=== PATIENT | female | born 1965 | race Caucasian/White ===

== ENCOUNTER 2019-03-25 00:57 | Inpatient (IN) ==
[2019-03-25 01:50] LABS: INFLUENZA A NEGATIVE (NEGATIVE); INFLUENZA B NEGATIVE (NEGATIVE)
[2019-03-25] MEDS ORDERED: TYLENOL PO ONE (01:55)
[2019-03-25] MEDS ORDERED: NS 1,000 ML IV ONE ×2 (01:56→07:14)
[2019-03-25 02:06] LABS: BILIRUBIN URINE NEGATIVE (NEGATIVE); BLOOD URINE 1+ (NEGATIVE); CLARITY CLEAR (CLEAR); COLOR YELLOW; GLUCOSE URINE NEGATIVE (NEGATIVE); KETONE URINE 1+(Small) mg/dL (NEGATIVE); LEUKOCYTES URINE 1+ (NEGATIVE); NITRITE URINE NEGATIVE (NEGATIVE); PH URINE 6.5; PROTEIN URINE 1+(30 mg/dL) mg/dL (NEGATIVE); SP GRAVITY URINE 1.015; UROBILINOGEN URINE 4 mg/dL
[2019-03-25 02:07] LABS: URINE BACTERIA 4+ /HFP; URINE EPITHELIAL CELLS <10 /HPF (<10); URINE SOURCE CLEAN CATCH
[2019-03-25 02:31] LABS: INR 1.1; PROTIME 14.8 Seconds (11.0-16.0)
[2019-03-25 02:32] LABS: PTT 47.3 Seconds (22.3-41.8)
[2019-03-25 02:58] LABS: BASO% 0.3 % (0.0-0.8); EOS% 1.9 % (0.0-10.0); LYMPH# 3.09 X1000 (1.2-3.4); MCH 30.7 PG (27-31)
[2019-03-25 02:59] LABS: AGAP 13; ALBUMIN 4.1 g/dL (3.5-5.0); ALKALINE PHOSPHATASE 145 U/L (32-104); BUN 15 mg/dL (8-22); CALCIUM 9.3 mg/dL (8.8-10.2); CHLORIDE 106 mmol/L (98-107); COSMO 276; CREATININE 0.7 mg/dL (0.5-0.9); ESTIMATED GFR > 60; GLUCOSE 161 mg/dL (70-104); GOT 29 U/L (10-30); GPT 20 U/L (10-36); POTASSIUM 4.3 mmol/L (3.5-5.1); SODIUM 136 mmol/L (136-145); TCO2 17 mmol/L (25-35); TOTAL PROTEIN 7.1 g/dL (6.3-8.3)
[2019-03-25] MEDS ORDERED: ROCEPHIN 1 GM in NS 50 ML IV ONE (03:06)
[2019-03-25] MEDS ORDERED: MOTRIN PO ONE (03:37)
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
[2019-03-25 05:23] LABS: BASO# 0.09 X1000 (0.0-0.2); EOS# 0.52 X1000 (0.0-0.7); HEMATOCRIT 38.3 % (37.0-47.0); HEMOGLOBIN 12.4 g/dL (12.0-16.0); IMM GRAN% 0.4 % (0.0-0.5); LYMPH% 11.5 % (20.5-51.1); MCHC 32.4 g/dL (33-37); MCV 94.8 FL (81-99); MONO# 1.84 X1000 (0.11-0.59); MONO% 6.9 % (1.7-9.3); MPV 10.2 FL (7.4-10.4); NEUT# 21.19 X1000 (1.4-6.5); PLT 300 X1000 (130-400); RBC 4.04 XMIL (4.2-5.4); RDW 13.6 % (11.5-14.5); WBC 26.83 X1000 (4.8-10.8)
[2019-03-25] MEDS ORDERED: NORCO-5 PO ONE (05:24)
--- NOTE | 2019-03-25 05:49 | Diag Imaging Result Doc PS360 ---
EXAM: CHEST-1 VIEW HISTORY: fever TECHNIQUE: Single view COMPARISON: None. FINDINGS: The lungs are well expanded. The heart is not enlarged. The vessels are not distended. There are right upper lobe infiltrates. No effusion identified. IMPRESSION: Right upper lobe pneumonia. Electronically signed by Maximo Rosas 03/25/2019 5:47 AM
[2019-03-25] MEDS ORDERED: TYLENOL PO PRN (06:11)
--- NOTE | 2019-03-25 06:38 | EKG Report ---
Test Performed on : 03/25/2019 02:21:55 AM Test Reason : fever Blood Pressure : / mmHG Vent. Rate : 114 BPM Atrial Rate : 114 BPM P-R Int : 120 ms QRS Dur : 076 ms QT Int : 274 ms P-R-T Axes : 048 036 -46 degrees QTc Int : 377 ms Sinus tachycardia. Possible Left atrial enlargement ST & T wave abnormality, consider inferior ischemia Abnormal ECG When compared with ECG of 11-SEP-2018 20:21, Inverted T waves have replaced nonspecific T wave abnormality in Lateral leads Unconfirmed Result
[2019-03-25] MEDS ORDERED: ZITHROMAX 500 MG/NS 500 MG/250 ML IVPB IV ONE (07:07)
[2019-03-25] MEDS ORDERED: NS 500 ML IV ONE (07:14)
[2019-03-25] MEDS ORDERED: VANCOMYCIN 1 GM/NS 1 GM/250 ML IVPB IV ONE (07:51)
[2019-03-25] MEDS: DUONEB (A & A) INH SCH ×5 (08:02→23:38)
[2019-03-25] MEDS ORDERED: DUONEB (A & A) INH PRN (09:18)
[2019-03-25] MEDS ORDERED: NORCO-5 PO PRN (10:44)
[2019-03-25] MEDS ORDERED: VANCOMYCIN IV PER PHARMACY MISC SCH (10:45)
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
[2019-03-25] MEDS ORDERED: VANCOMYCIN 1,500 MG in NS 250 ML IV ONE (12:30)
[2019-03-25] MEDS ORDERED: IMITREX PO PRN (12:33)
[2019-03-25] MEDS ORDERED: SINEMET 25/100 PO SCH (13:00)
[2019-03-25] MEDS: ZOSYN 3.375 GM in NS 50 ML IV SCH ×2 (13:19→23:08)
[2019-03-25] MEDS: LOVENOX SUBQ SCH (13:19)
[2019-03-25] MEDS: NEURONTIN PO SCH ×2 (13:20→17:09)
[2019-03-25] MEDS: PYRIDIUM PO SCH ×2 (13:20→17:09)
[2019-03-25] MEDS: NORCO-10 PO PRN ×2 (13:34→18:39)
[2019-03-25] MEDS ORDERED: CHLORASEPTIC SPRAY MT PRN (15:30)
[2019-03-25] MEDS ORDERED: BLISTEX MEDICATED BERRY LIP BALM TOP PRN (15:30)
--- NOTE | 2019-03-25 16:03 | Diag Imaging Result Doc PS360 ---
US PELVIC NON-OB COMPLETE - 03/25/2019 INDICATION: bladder sling, recurrent uti TECHNIQUE: Standard protocol. COMPARISON: None FINDINGS: Uterus: Status post hysterectomy. Endometrium: Status post hysterectomy. Right ovary: 1.9 x 1.2 x 1.1 cm. Color Doppler blood flow present.. Left ovary: 1.9 x 1.1 x 1.2 cm. Color Doppler blood flow present. Cul-de-sac: No free fluid. Urinary bladder is unremarkable. IMPRESSION: Absent uterus.. Otherwise unremarkable pelvic ultrasound. Electronically signed by Patricia Javier 03/25/2019 4:01 PM
[2019-03-25] MEDS: SINEMET 25/100 PO SCH ×2 (16:06→21:35)
[2019-03-25] MEDS: PULMICORT INH SCH (19:56)
[2019-03-25] MEDS: ELAVIL PO SCH (21:12)
[2019-03-25] MEDS: TOPAMAX PO SCH (21:12)
[2019-03-25] MEDS: SINEMET CR 25/100 PO SCH (21:12)
[2019-03-25] MEDS: RESTORIL PO SCH (23:08)
[2019-03-26] MEDS: NORCO-10 PO PRN ×4 (01:40→22:49)
[2019-03-26] MEDS: ZOSYN 3.375 GM in NS 50 ML IV SCH ×4 (01:40→17:10)
[2019-03-26] MEDS: VANCOMYCIN 1 GM/NS 1 GM/250 ML IVPB IV SCH ×2 (02:14→21:01)
[2019-03-26] MEDS: DUONEB (A & A) INH SCH ×6 (03:16→23:37)
[2019-03-26] MEDS ORDERED: FLU VACCINE IM ONE (06:00)
[2019-03-26 06:13] LABS: BASO# 0.06 X1000 (0.0-0.2); BASO% 0.3 % (0.0-0.8); EOS# 0.45 X1000 (0.0-0.7); EOS% 2.4 % (0.0-10.0); HEMATOCRIT 35.2 % (37.0-47.0); HEMOGLOBIN 11.5 g/dL (12.0-16.0); IMM GRAN# 0.09 X1000 (0.0-0.04); IMM GRAN% 0.5 % (0.0-0.5); LYMPH# 2.07 X1000 (1.2-3.4); LYMPH% 11.1 % (20.5-51.1); MCH 30.7 PG (27-31); MCHC 32.7 g/dL (33-37); MCV 94.1 FL (81-99); MONO# 1.13 X1000 (0.11-0.59); MONO% 6.1 % (1.7-9.3); MPV 9.7 FL (7.4-10.4); NEUT# 14.87 X1000 (1.4-6.5); NEUT% 79.6 % (42.2-75.2); PLT 330 X1000 (130-400); RBC 3.74 XMIL (4.2-5.4); RDW 13.5 % (11.5-14.5); WBC 18.67 X1000 (4.8-10.8)
[2019-03-26 06:26] LABS: ESTIMATED GFR > 60
[2019-03-26 06:32] LABS: AGAP 12; ALBUMIN 2.9 g/dL (3.5-5.0); ALKALINE PHOSPHATASE 145 U/L (32-104); BUN 10 mg/dL (8-22); CALCIUM 8.9 mg/dL (8.8-10.2); CHLORIDE 110 mmol/L (98-107); COSMO 275; CREATININE 0.6 mg/dL (0.5-0.9); GLUCOSE 143 mg/dL (70-104); GOT 24 U/L (10-30); GPT 9 U/L (10-36); POTASSIUM 3.8 mmol/L (3.5-5.1); SODIUM 137 mmol/L (136-145); TCO2 15 mmol/L (25-35); TOTAL PROTEIN 6.7 g/dL (6.3-8.3)
--- NOTE | 2019-03-26 07:16 | Diag Imaging Result Doc PS360 ---
EXAM: CHEST-2 VIEWS HISTORY: Pneumonia TECHNIQUE: Two views COMPARISON: 03/25/2019 FINDINGS: worsening right upper lobe infiltrates. There are also small infiltrates developing in the lung bases. The lungs are well expanded. No cardiomegaly. Trace pleural fluid. IMPRESSION: Worsening bilateral pneumonia. Electronically signed by Maximo Rosas 03/26/2019 7:14 AM
[2019-03-26] MEDS: ZOFRAN ODT PO PRN ×2 (07:30→13:52)
[2019-03-26] MEDS: LOVENOX SUBQ SCH ×2 (08:16→09:46)
[2019-03-26] MEDS: PROVIGIL PO SCH (08:17)
[2019-03-26] MEDS: PYRIDIUM PO SCH ×3 (08:17→18:10)
[2019-03-26] MEDS: PRISTIQ ER PO SCH (08:17)
[2019-03-26] MEDS: WELLBUTRIN XL PO SCH (08:18)
[2019-03-26] MEDS: NEURONTIN PO SCH ×3 (08:18→18:10)
[2019-03-26] MEDS: SINEMET 25/100 PO SCH ×5 (08:19→18:10)
[2019-03-26] MEDS: PULMICORT INH SCH ×2 (08:21→19:56)
--- NOTE | 2019-03-26 09:54 | PROGRESS NOTE ---
DATE: 03/26/2019 SUBJECTIVE: Patient denies having any acute complaints this morning. She is having some shortness of breath but that has significantly improved since she came into the hospital. OBJECTIVE: Vital Signs: Temperature 98.9 degrees, pulse 106 per minute, respiratory rate 16 per minute, blood pressure 124/74, pulse oximetry 95% on room air. General: Patient is alert and oriented x3. She does not appear to be in any acute distress. Cardiovascular System: First and second heart sounds are audible without any murmurs or gallops. Respiratory System: Bilateral lung air entry is moderately decreased but there are no rales or rhonchi present on auscultation. Gastrointestinal: Abdomen is soft and nontender. Normal bowel sounds are present. DIAGNOSTIC DATA: CBC shows WBC count of 18.67, hemoglobin 11.5, hematocrit 35.2, and platelet count of 330,000. Neutrophils are 79.6%. In comparison, her white blood cell count was 26.83 yesterday. Chemistry showed glucose of 143. Rest of the chemistry is nondiagnostic. Chest x-ray done this morning showed worsening bilateral infiltrates. IMPRESSION: 1. Bilateral pneumonia. 2. Urinary tract infection. 3. Parkinson disease. PLAN: The patient has been getting vancomycin and Zosyn which will be continued. I am going to add azithromycin intravenously to cover the atypical organisms. She will continue with supportive care and we are going to give her IV fluid as well. She will continue with bronchodilators and we will monitor her labs. I believe she is clinically responding to current therapy. cc: Richelle Bright MD
[2019-03-26] MEDS: MORPHINE IV PRN ×4 (10:31→22:50)
[2019-03-26] MEDS: NS 1,000 ML IV SCH (10:32)
[2019-03-26] MEDS: ZITHROMAX 500 MG/NS 500 MG/250 ML IVPB IV SCH (10:32)
[2019-03-26] MEDS: IMITREX PO PRN (13:52)
[2019-03-26] MEDS: ELAVIL PO SCH (21:01)
[2019-03-26] MEDS: RESTORIL PO SCH (21:02)
[2019-03-26] MEDS: SINEMET CR 25/100 PO SCH (21:02)
[2019-03-26] MEDS: TOPAMAX PO SCH (21:02)
[2019-03-27] MEDS: DUONEB (A & A) INH SCH ×6 (02:55→22:45)
[2019-03-27] MEDS: ZOSYN 3.375 GM in NS 50 ML IV SCH ×3 (03:31→23:12)
[2019-03-27] MEDS: NS 1,000 ML IV SCH ×2 (04:37→18:09)
[2019-03-27 06:27] LABS: BASO# 0.07 X1000 (0.0-0.2); BASO% 0.5 % (0.0-0.8); EOS# 0.72 X1000 (0.0-0.7); HEMOGLOBIN 10.6 g/dL (12.0-16.0); IMM GRAN# 0.11 X1000 (0.0-0.04); IMM GRAN% 0.8 % (0.0-0.5); LYMPH# 2.53 X1000 (1.2-3.4); LYMPH% 17.6 % (20.5-51.1); MCH 29.2 PG (27-31); MCHC 31.2 g/dL (33-37); MCV 93.7 FL (81-99); MONO% 10.4 % (1.7-9.3); MPV 9.7 FL (7.4-10.4); NEUT# 9.46 X1000 (1.4-6.5); NEUT% 65.7 % (42.2-75.2); PLT 345 X1000 (130-400); RBC 3.63 XMIL (4.2-5.4); RDW 13.5 % (11.5-14.5); WBC 14.39 X1000 (4.8-10.8)
[2019-03-27 06:53] LABS: AGAP 11; ALKALINE PHOSPHATASE 152 U/L (32-104); BUN 7 mg/dL (8-22); CALCIUM 8.9 mg/dL (8.8-10.2); CHLORIDE 108 mmol/L (98-107); COSMO 275; CREATININE 0.6 mg/dL (0.5-0.9); ESTIMATED GFR > 60; GLUCOSE 130 mg/dL (70-104); GOT 26 U/L (10-30); GPT < 5 U/L (10-36); POTASSIUM 3.3 mmol/L (3.5-5.1); SODIUM 138 mmol/L (136-145); TCO2 19 mmol/L (25-35); TOTAL PROTEIN 6.6 g/dL (6.3-8.3)
[2019-03-27] MEDS: PULMICORT INH SCH ×2 (07:50→20:04)
[2019-03-27] MEDS: ZITHROMAX 500 MG/NS 500 MG/250 ML IVPB IV SCH (08:19)
[2019-03-27] MEDS: NEURONTIN PO SCH ×3 (08:19→16:33)
[2019-03-27] MEDS: PRISTIQ ER PO SCH (08:19)
[2019-03-27] MEDS: PYRIDIUM PO SCH (08:19)
[2019-03-27] MEDS: SINEMET 25/100 PO SCH ×5 (08:19→17:45)
[2019-03-27] MEDS: PROVIGIL PO SCH (08:19)
[2019-03-27] MEDS: NORCO-10 PO PRN ×3 (08:20→23:13)
[2019-03-27] MEDS: LOVENOX SUBQ SCH ×2 (08:20→09:58)
[2019-03-27] MEDS: WELLBUTRIN XL PO SCH (08:20)
[2019-03-27] MEDS: ZOFRAN ODT PO PRN (10:26)
[2019-03-27] MEDS: MORPHINE IV PRN ×3 (10:45→21:15)
[2019-03-27] MEDS: VANCOMYCIN 1 GM/NS 1 GM/250 ML IVPB IV SCH (14:20)
--- NOTE | 2019-03-27 15:20 | PROGRESS NOTE ---
DATE: 03/27/2019 SUBJECTIVE: The patient reports breathing better. White cell count is getting better. She reports to have had a temperature today. OBJECTIVE: Vital Signs: Temperature 100.1 degrees, heart rate 108, respiratory rate 22, blood pressure 113/73, O2 saturation 95% on room air. General Examination: This is a 53-year-old, chronically ill-appearing, female, lying in bed, in no acute distress. Cardiovascular Examination: S1 and S2 heard. No murmurs, gallops, or rubs. Regular rate and rhythm. Respiratory Examination: Clear bilaterally to auscultation. No work of breathing or using accessory muscles. Abdomen: Soft, nontender to palpation. Bowel sounds present. No organomegaly. Extremities: No clubbing, cyanosis, or edema. Peripheral pulses present in both legs. Neurological Examination: The patient is alert and oriented x3. Moves 4 extremities. Laboratory Data: Reviewed. ASSESSMENT: 1. Bilateral pneumonia. 2. Urinary tract infection. 3. Parkinson's disease. PLAN: At this point, the patient has been at admission with vancomycin and Zosyn. Even though this patient feels better and white cell count is getting better, the patient continues to spike fever so at this point, to cover typical organism, azithromycin has been started. Definitely, we will continue with the same management. We will continue with bronchodilators. I will check CBC tomorrow. We will wait for results of urine and blood cultures as well. We will continue with Parkinson's disease medications for her. cc: Moisés Landin MD
[2019-03-27] MEDS: ELAVIL PO SCH (21:14)
[2019-03-27] MEDS: MYCOSTATIN SUSP PO SCH (21:15)
[2019-03-27] MEDS: TOPAMAX PO SCH (21:15)
[2019-03-27] MEDS: RESTORIL PO SCH (21:15)
[2019-03-27] MEDS: SINEMET CR 25/100 PO SCH (21:15)
[2019-03-28] MEDS: MORPHINE IV PRN ×3 (03:44→21:07)
[2019-03-28] MEDS: NS 1,000 ML IV SCH ×2 (03:45→15:37)
[2019-03-28] MEDS: ZOSYN 3.375 GM in NS 50 ML IV SCH ×3 (05:47→17:57)
[2019-03-28] MEDS: DUONEB (A & A) INH SCH ×2 (06:15→08:18)
[2019-03-28 06:40] LABS: BASO# 0.14 X1000 (0.0-0.2); BASO% 1.3 % (0.0-0.8); EOS# 0.81 X1000 (0.0-0.7); EOS% 7.3 % (0.0-10.0); HEMATOCRIT 36.3 % (37.0-47.0); HEMOGLOBIN 11.4 g/dL (12.0-16.0); IMM GRAN# 0.16 X1000 (0.0-0.04); IMM GRAN% 1.4 % (0.0-0.5); LYMPH# 2.26 X1000 (1.2-3.4); LYMPH% 20.4 % (20.5-51.1); MCH 30.7 PG (27-31); MCHC 31.4 g/dL (33-37); MCV 97.8 FL (81-99); MONO# 1.43 X1000 (0.11-0.59); MONO% 12.9 % (1.7-9.3); MPV 9.6 FL (7.4-10.4); NEUT# 6.28 X1000 (1.4-6.5); NEUT% 56.7 % (42.2-75.2); PLT 287 X1000 (130-400); RBC 3.71 XMIL (4.2-5.4); WBC 11.08 X1000 (4.8-10.8)
[2019-03-28 06:56] LABS: AGAP 13; ALBUMIN 2.4 g/dL (3.5-5.0); ALKALINE PHOSPHATASE 183 U/L (32-104); BUN 7 mg/dL (8-22); CALCIUM 8.8 mg/dL (8.8-10.2); CHLORIDE 109 mmol/L (98-107); COSMO 270; CREATININE 0.6 mg/dL (0.5-0.9); ESTIMATED GFR > 60; GLUCOSE 104 mg/dL (70-104); GOT 51 U/L (10-30); GPT 11 U/L (10-36); POTASSIUM 4.2 mmol/L (3.5-5.1); SODIUM 136 mmol/L (136-145); TCO2 15 mmol/L (25-35); TOTAL PROTEIN 6.5 g/dL (6.3-8.3)
[2019-03-28] MEDS: PULMICORT INH SCH ×2 (08:14→20:06)
[2019-03-28] MEDS: PRISTIQ ER PO SCH (08:21)
[2019-03-28] MEDS: WELLBUTRIN XL PO SCH (08:21)
[2019-03-28] MEDS: PROVIGIL PO SCH (08:22)
[2019-03-28] MEDS: SINEMET 25/100 PO SCH ×5 (08:23→18:00)
[2019-03-28] MEDS: MYCOSTATIN SUSP PO SCH ×5 (08:23→21:03)
[2019-03-28] MEDS: NEURONTIN PO SCH ×4 (08:23→16:30)
[2019-03-28] MEDS: LOVENOX SUBQ SCH ×2 (08:23→10:46)
[2019-03-28 08:24] LABS: EOS 6 % (1-10); LYMPHS 21 % (21-51); MONO 13 % (1-9); SEGS 60 % (42-75)
[2019-03-28] MEDS: ZITHROMAX 500 MG/NS 500 MG/250 ML IVPB IV SCH (08:25)
--- NOTE | 2019-03-28 10:32 | PROGRESS NOTE ---
DATE: 03/28/2019 SUBJECTIVE: "Feeling better". OBJECTIVE: Vital Signs: Temperature is 98.9 degrees, heart rate 105, respirations 20, blood pressure 112/75, O2 is 97% on 2 L nasal cannula. General: Ms. Nguyen is a 53-year-old, female who is lying in the bed, sleeping, in no acute distress. Awakens easily. HEENT: Atraumatic, normocephalic. PERRL. Neck: Supple. Trachea midline. CV: S1, S2 appreciated. No murmurs, gallops, rubs noted. Respiratory: Lung sounds clear bilaterally. No work of breathing. Abdomen: Soft, nontender, nondistended. Positive bowel sounds in 4 quadrants. Extremities: No clubbing, no cyanosis. Neurologic: No focal deficits noted. Laboratory Data: White count 11, hemoglobin and hematocrit 11 and 36, platelet count is 287,000. Sodium 136, potassium 4.2, BUN 7, creatinine 0.6, blood glucose 104. Diagnostic Data: None. ASSESSMENT AND PLAN: 1. Bilateral pneumonia. The patient did spike a low-grade fever overnight. She will continue on intravenous antibiotics, bronchodilators, and aggressive pulmonary toilet. We will try to wean her off her supplemental oxygen. However, she states it seems to help her with her headaches. 2. Urinary tract infection. Continue intravenous antibiotics. Urine culture shows no growth. 3. Parkinson's disease. Continue home medications. 4. Further recommendation to follow physician evaluation, laboratory and diagnostic data. Dictated by RODGER Mathis for Moisés Landin MD Addendum: Patient seen and examined by myself. Agree with RODGER note. It reflects my assessment and plan. If tomorrow CXR and WBC are getting better will discharge her. cc: Moisés Landin MD [facility]
[2019-03-28] MEDS: VANCOMYCIN 1 GM/NS 1 GM/250 ML IVPB IV SCH (11:30)
[2019-03-28] MEDS: NORCO-10 PO PRN ×2 (14:15→21:06)
[2019-03-28] MEDS: IMITREX PO PRN (15:43)
[2019-03-28] MEDS: XOPENEX NEB INH PRN (20:06)
[2019-03-28] MEDS: ELAVIL PO SCH (21:02)
[2019-03-28] MEDS: TOPAMAX PO SCH (21:03)
[2019-03-28] MEDS: RESTORIL PO SCH (21:03)
[2019-03-28] MEDS: SINEMET CR 25/100 PO SCH (21:03)
[2019-03-28] MEDS: IMITREX SUBQ SUBQ PRN (21:48)
[2019-03-29] MEDS: VANCOMYCIN 1 GM/NS 1 GM/250 ML IVPB IV SCH ×2 (00:50→00:51)
[2019-03-29] MEDS: NS 1,000 ML IV SCH ×2 (00:50→05:16)
[2019-03-29] MEDS: ZOSYN 3.375 GM in NS 50 ML IV SCH (02:28)
[2019-03-29] MEDS: MORPHINE IV PRN (05:16)
[2019-03-29 06:32] LABS: BASO# 0.08 X1000 (0.0-0.2); BASO% 0.6 % (0.0-0.8); EOS# 0.83 X1000 (0.0-0.7); EOS% 6.1 % (0.0-10.0); HEMATOCRIT 33.1 % (37.0-47.0); HEMOGLOBIN 10.3 g/dL (12.0-16.0); IMM GRAN# 0.17 X1000 (0.0-0.04); IMM GRAN% 1.3 % (0.0-0.5); LYMPH# 2.43 X1000 (1.2-3.4); LYMPH% 17.9 % (20.5-51.1); MCH 29.1 PG (27-31); MCHC 31.1 g/dL (33-37); MCV 93.5 FL (81-99); MONO# 1.22 X1000 (0.11-0.59); MPV 9.6 FL (7.4-10.4); NEUT# 8.83 X1000 (1.4-6.5); NEUT% 65.1 % (42.2-75.2); PLT 380 X1000 (130-400); RBC 3.54 XMIL (4.2-5.4); RDW 13.5 % (11.5-14.5); WBC 13.56 X1000 (4.8-10.8)
[2019-03-29 06:49] LABS: AGAP 10; ALBUMIN 2.9 g/dL (3.5-5.0); ALKALINE PHOSPHATASE 234 U/L (32-104); BUN 6 mg/dL (8-22); CHLORIDE 110 mmol/L (98-107); COSMO 278; CREATININE 0.6 mg/dL (0.5-0.9); ESTIMATED GFR > 60; GLUCOSE 112 mg/dL (70-104); GOT 81 U/L (10-30); GPT 9 U/L (10-36); POTASSIUM 3.6 mmol/L (3.5-5.1); SODIUM 140 mmol/L (136-145); TCO2 20 mmol/L (25-35); TOTAL PROTEIN 6.4 g/dL (6.3-8.3)
[2019-03-29] MEDS: PULMICORT INH SCH ×2 (07:48→19:42)
[2019-03-29] MEDS: XOPENEX NEB INH PRN ×2 (07:48→19:43)
--- NOTE | 2019-03-29 07:54 | Diag Imaging Result Doc PS360 ---
CHEST-2 VIEWS - 03/29/2019 INDICATION: follow up PNA COMPARISON: 03/26/2019 FINDINGS: Stable dense consolidation of the right upper lobe. Stable right hilar enlargement. Stable patchy infiltrates in both lung bases as well. Heart size remains top normal. There are trace pleural effusions. IMPRESSION: No change from prior. Electronically signed by Juan Young 03/29/2019 7:51 AM
[2019-03-29 08:51] LABS: EOS 6 % (1-10); LYMPHS 20 % (21-51); MONO 9 % (1-9); SEGS 65 % (42-75)
[2019-03-29] MEDS: OMNICEF PO SCH ×2 (09:51→21:17)
[2019-03-29] MEDS: PRISTIQ ER PO SCH (09:52)
[2019-03-29] MEDS: ZITHROMAX PO SCH (09:52)
[2019-03-29] MEDS: SINEMET 25/100 PO SCH ×5 (09:52→18:45)
[2019-03-29] MEDS: NEURONTIN PO SCH ×3 (09:52→16:47)
[2019-03-29] MEDS: PROVIGIL PO SCH (09:53)
[2019-03-29] MEDS: MYCOSTATIN SUSP PO SCH ×4 (09:53→21:16)
[2019-03-29] MEDS: WELLBUTRIN XL PO SCH (09:53)
[2019-03-29] MEDS: LOVENOX SUBQ SCH (09:53)
[2019-03-29] MEDS: NORCO-10 PO PRN ×4 (10:00→21:16)
--- NOTE | 2019-03-29 19:48 | PROGRESS NOTE ---
DATE: 03/29/2019 SUBJECTIVE: Patient notes that she is starting to feel better. She is still having some cough, congestion, but overall, shortness of breath is improved. Denies any fevers. PHYSICAL EXAMINATION: Temperature 98, pulse 88, respiratory 18, BP 110/67.General: Patient is awake, very pleasant. She is in no current respiratory distress. She is lying in the bed. Speaks in complete sentences. HEENT: Normocephalic. Neck: Supple. Cardiovascular: Regular rate. No murmurs. Chest: Clear. No crackles. No wheezing. Abdomen: Soft, nondistended. Extremities: Moves all extremities. ASSESSMENT: 1. Bilateral pneumonia. 2. Urinary tract infection. 3. Parkinson's disease. PLAN: We are going to stop her IV antibiotics, vancomycin and Zosyn, and change to p.o. antibiotics. We will continue breathing treatments and oxygen. If she continues to improve, she can be discharged home tomorrow. Chest x-ray is currently pending. cc: Alexis Ovalle MD
[2019-03-29] MEDS: RESTORIL PO SCH (21:16)
[2019-03-29] MEDS: TOPAMAX PO SCH (21:16)
[2019-03-29] MEDS: SINEMET CR 25/100 PO SCH (21:17)
[2019-03-29] MEDS: ELAVIL PO SCH (21:17)
[2019-03-29] MEDS: IMITREX SUBQ SUBQ PRN (21:17)
[2019-03-30] MEDS: NS 1,000 ML IV SCH ×4 (03:10→23:19)
[2019-03-30 06:05] LABS: BASO# 0.13 X1000 (0.0-0.2); BASO% 0.9 % (0.0-0.8); EOS# 0.89 X1000 (0.0-0.7); EOS% 6.3 % (0.0-10.0); HEMATOCRIT 35.3 % (37.0-47.0); HEMOGLOBIN 11.5 g/dL (12.0-16.0); IMM GRAN# 0.19 X1000 (0.0-0.04); IMM GRAN% 1.4 % (0.0-0.5); LYMPH# 2.57 X1000 (1.2-3.4); LYMPH% 18.3 % (20.5-51.1); MCH 30.6 PG (27-31); MCHC 32.6 g/dL (33-37); MCV 93.9 FL (81-99); MONO# 1.18 X1000 (0.11-0.59); MONO% 8.4 % (1.7-9.3); MPV 9.5 FL (7.4-10.4); NEUT% 64.7 % (42.2-75.2); PLT 445 X1000 (130-400); RBC 3.76 XMIL (4.2-5.4); RDW 13.7 % (11.5-14.5); WBC 14.06 X1000 (4.8-10.8)
[2019-03-30 06:11] LABS: AGAP 12; ALBUMIN 2.9 g/dL (3.5-5.0); ALKALINE PHOSPHATASE 226 U/L (32-104); BUN 7 mg/dL (8-22); CHLORIDE 108 mmol/L (98-107); COSMO 277; CREATININE 0.6 mg/dL (0.5-0.9); ESTIMATED GFR > 60; GLUCOSE 134 mg/dL (70-104); GOT 52 U/L (10-30); GPT 8 U/L (10-36); POTASSIUM 3.2 mmol/L (3.5-5.1); SODIUM 139 mmol/L (136-145); TCO2 19 mmol/L (25-35); TOTAL PROTEIN 6.8 g/dL (6.3-8.3)
[2019-03-30 07:13] LABS: BANDS 4 % (0-1); LYMPHS 23 % (21-51); MONO 3 % (1-9); SEGS 70 % (42-75)
[2019-03-30] MEDS: NEURONTIN PO SCH ×3 (08:34→16:09)
[2019-03-30] MEDS: WELLBUTRIN XL PO SCH (08:34)
[2019-03-30] MEDS: OMNICEF PO SCH ×2 (08:34→20:39)
[2019-03-30] MEDS ORDERED: KLOR-CON PO ONE (08:34)
[2019-03-30] MEDS ORDERED: ROBITUSSIN-DM PO PRN (08:35)
[2019-03-30] MEDS: MYCOSTATIN SUSP PO SCH ×4 (08:35→20:39)
[2019-03-30] MEDS: PRISTIQ ER PO SCH (08:35)
[2019-03-30] MEDS: ZITHROMAX PO SCH (08:35)
[2019-03-30] MEDS: SINEMET 25/100 PO SCH ×5 (08:35→18:34)
[2019-03-30] MEDS: PROVIGIL PO SCH (08:35)
[2019-03-30] MEDS ORDERED: ZYVOX PO SCH (09:00)
[2019-03-30] MEDS: PERCOCET-10 PO PRN ×3 (09:17→20:38)
[2019-03-30] MEDS: CULTURELLE PO SCH ×2 (10:45→20:39)
[2019-03-30] MEDS: LOVENOX SUBQ SCH (10:45)
[2019-03-30] MEDS: PULMICORT INH SCH ×2 (12:29→19:58)
[2019-03-30] MEDS: XOPENEX NEB INH PRN ×2 (12:30→19:58)
[2019-03-30] MEDS: IMITREX SUBQ SUBQ PRN (16:10)
[2019-03-30] MEDS ORDERED: FIORICET PO PRN (18:38)
[2019-03-30] MEDS: SINEMET CR 25/100 PO SCH (20:39)
[2019-03-30] MEDS: RESTORIL PO SCH (20:39)
[2019-03-30] MEDS: TOPAMAX PO SCH (20:40)
--- NOTE | 2019-03-30 22:51 | PROGRESS NOTE ---
DATE: 03/30/2019 SUBJECTIVE: The patient notes that she is needing pain medications for her back and neck. Also notes that she has carpal tunnel, for which she needs pain medications. She states that she has headaches for which she needs pain medications. Notes that she is scheduled to have surgery, I believe next week, for either her back or her neck. She notes that she is still having some cough and congestion, but overall that seems to be better. She is starting to cough some production up, although she has not really been out of bed. OBJECTIVE: Temperature 98 degrees, pulse 88, respiratory rate 20, BP 110/67.General: The patient is currently in mild respiratory distress. She is very pleasant. She is awake, alert and oriented, moving air well. HEENT: Normocephalic. Neck supple. Cardiovascular: Regular rate. No murmurs. Chest clear. No current crackles. No wheezing. No rhonchi. Decreased air movement bilaterally. Abdomen is soft, nondistended. Extremities: Moves all extremities. ASSESSMENT: 1. Bilateral pneumonia. She has been afebrile now for close to 24 hours. 2. Urinary tract infection, appears to have resolved. 3. Parkinson disease. 4. Headaches. 5. Chronic pain from a multitude of areas. 6. Leukocytosis. 7. Hypokalemia. PLAN: We are going to replace her potassium. Continue antibiotics. She has been changed over to oral antibiotics as she does not have an IV. The patient is inquiring about a PICC line, more so for pain medication, which I discussed with her that would be a very poor option given the fact that all pain medications decrease breathing, and certainly could worsen her pneumonia. We are going to continue her on oral antibiotics. Her family is wanting everything x-rayed because she is hurting. Discussed with them that it seems a little unnecessary, as she already has known back and neck issues for which surgery is required. Unfortunately, she is not going to be able to have surgery clearly until her pneumonia has completely resolved. We will continue to follow. cc: Alexis Ovalle MD
[2019-03-30] MEDS: ELAVIL PO SCH (23:26)
[2019-03-30] MEDS: ZOFRAN ODT PO PRN (23:26)
[2019-03-31 05:26] LABS: HEMATOCRIT 37.7 % (37.0-47.0); MCH 29.6 PG (27-31); MCHC 31.8 g/dL (33-37); MCV 92.9 FL (81-99); MPV 9.5 FL (7.4-10.4); RBC 4.06 XMIL (4.2-5.4); RDW 13.7 % (11.5-14.5); WBC 15.8 X1000 (4.8-10.8)
[2019-03-31 05:39] LABS: AGAP 13; ALBUMIN 3.6 g/dL (3.5-5.0); ALKALINE PHOSPHATASE 237 U/L (32-104); BUN 8 mg/dL (8-22); CALCIUM 9.6 mg/dL (8.8-10.2); CHLORIDE 107 mmol/L (98-107); COSMO 279; CREATININE 0.7 mg/dL (0.5-0.9); ESTIMATED GFR > 60; GLUCOSE 159 mg/dL (70-104); GOT 61 U/L (10-30); GPT 16 U/L (10-36); POTASSIUM 3.4 mmol/L (3.5-5.1); SODIUM 139 mmol/L (136-145); TCO2 20 mmol/L (25-35); TOTAL PROTEIN 7.6 g/dL (6.3-8.3)
[2019-03-31] MEDS: PULMICORT INH SCH (08:27)
[2019-03-31] MEDS: XOPENEX NEB INH PRN ×2 (08:27→11:48)
--- NOTE | 2019-03-31 09:48 | Diag Imaging Result Doc PS360 ---
EXAM: CHEST-2 VIEWS HISTORY: hypoxia TECHNIQUE: Two views COMPARISON: 03/29/2019 FINDINGS: The lungs are well expanded. Persistent dense infiltrates in the right upper lobe. There are smaller infiltrates in the left base. Overall these are slightly less prominent than on the prior study. No cardiomegaly. No pulmonary edema. IMPRESSION: Persistent bilateral pneumonia with slight interval improvement. Electronically signed by Maximo Rosas 03/31/2019 9:46 AM
[2019-03-31] MEDS: LOVENOX SUBQ SCH (09:49)
[2019-03-31] MEDS: MYCOSTATIN SUSP PO SCH (09:49)
[2019-03-31] MEDS: OMNICEF PO SCH (09:50)
[2019-03-31] MEDS: WELLBUTRIN XL PO SCH (09:50)
[2019-03-31] MEDS: SINEMET 25/100 PO SCH ×2 (09:50→12:33)
[2019-03-31] MEDS: PROVIGIL PO SCH (09:50)
[2019-03-31] MEDS: NEURONTIN PO SCH (09:50)
[2019-03-31] MEDS: ZITHROMAX PO SCH (09:50)
[2019-03-31] MEDS: CULTURELLE PO SCH (09:50)
[2019-03-31] MEDS: PRISTIQ ER PO SCH (09:50)
[2019-03-31 12:13] VITALS: BP 119/73
[2019-03-31] MEDS: NS 1,000 ML IV SCH (12:34)
--- NOTE | 2019-03-31 21:11 | DISCHARGE SUMMARY ---
ADMISSION DATE: 03/25/2019 DISCHARGE DATE: 03/31/2019 CONSULTATIONS: None. PERTINENT PROCEDURES: Initial chest x-ray. Right upper lobe pneumonia. Pelvic ultrasound. Absent uterus. Otherwise unremarkable. Final chest x-ray shows persistent pneumonia with slight interval improvement. DISCHARGE DIAGNOSES: 1. Bilateral pneumonia. The patient has been afebrile for more than 24 hours. Will be discharged home with p.o. antibiotics to finish out her Omnicef and Zithromax. 2. Urinary tract infection, resolved. 3. Parkinson disease, aware. 4. Headaches. 5. Chronic pain from multitude of areas. Continue home pain regimen. 6. Leukocytosis. 7. Hypokalemia, resolved. HOSPITAL COURSE: Briefly, Ms. Nguyen is a 53-year-old female with history of Parkinson's diagnosed 2 years ago. On carbidopa/]levodopa. She does have pretty significant jerking in her body from the Parkinson's and came to the ED after feeling fatigued, body aches, as well as a productive cough and developed fever up to 103 with chills. She was brought to the ED for evaluation and was found to have a lower lobe pneumonia. Her flu was negative as well as a urinary tract infection. She was admitted to the hospital, initiated on IV antibiotics requiring O2 supplementation for hypoxemia. We did attempt to wean her off the oxygen. However, she does qualify for home O2. [employer] Judge did explain to the patient that she may not qualify for insurance to pay and that she would have to pay [id number] and will receive home health with [facility]. She has slowly improved throughout her hospital stay. Continued to complain of her neck and back pain as well as carpal tunnel and headaches. She is scheduled to have, I believe, back or neck surgery next week. Again, she has been afebrile for more than 24 hours and has had some improvement in her chest x-rays and will be discharged home to finish out her antibiotic course. We also explained to her as well she will need to follow up with her PCP closely prior to having surgery to make sure that her pneumonia has completely cleared. VITAL SIGNS: At time of discharge, temperature is 98.4 degrees, heart rate 88, respirations 20, blood pressure 117/73, O2 92% on room air. DISCHARGE DIET: Mechanical soft. DISCHARGE MEDICATIONS: 1. Elavil 150 mg p.o. at bedtime. 2. Restoril 50 mg p.o. at bedtime. 3. Sinemet CR 50, 200 tablet 1 each p.o. at bedtime. 4. Topamax 100 mg p.o. at bedtime. 5. Gabapentin 600 mg p.o. t.i.d. 6. Imitrex 50 mg p.o. p.r.n. headache. 7. Orem 10 one tablet p.o. 4 times a day p.r.n. 8. Pristiq ER 100 mg p.o. daily. 9. Provigil 100 mg p.o. daily. 10. Sinemet 25-100 one tablet p.o. 5 times a day. 11. Wellbutrin XL 150 mg p.o. daily. 12. Omnicef 300 mg p.o. b.i.d. for 3 capsules. 13. Zithromax 500 mg p.o. daily for 2 capsules FOLLOWUP: Ms. Nguyen is being discharged home with home health and supplemental O2. She is to follow up closely with her primary care provider to make sure that her pneumonia has cleared prior to having her neck or back surgery. She is take all medications as prescribed. She can return to the ED or call 911 for any worsening of symptoms. Dictated by RODGER Mathis for Alexis Ovalle MD cc: MD Jad Acuna MD
== END 2019-03-31 14:30 | disposition home health service (06) | DRG 871 ==
LOC: P.ED 00:57 → SUATTDRO 00:58 → EDIPHOLD 00:58 → P.MEDSURG 09:16
PROVIDERS: ATTEND Family Medicine